=== PATIENT | female | born 1930 | race Caucasian/White ===

== ENCOUNTER → 2017-01-05 | Outpatient (CLI) | payer OTHER | LOC: CIMAGING 14:16 | DX: Z12.31 Encounter for screening mammogram for malignant neoplasm of breast (principal); Z85.3 Personal history of malignant neoplasm of breast; Z90.11 Acquired absence of right breast and nipple; Z80.3 Family history of malignant neoplasm of breast | CPT/HCPCS: G0202-52 ==

== ENCOUNTER → 2017-02-22 | Outpatient (CLI) | payer OTHER | LOC: CIMAGING 13:28 | PROVIDERS: ATTEND Internal Medicine | DX: R91.1 Solitary pulmonary nodule (principal); R06.02 Shortness of breath; Z85.3 Personal history of malignant neoplasm of breast; Z90.12 Acquired absence of left breast and nipple | CPT/HCPCS: 71250-PO ==

== ENCOUNTER 2017-03-14 08:03 | Emergency (ER) | payer OTHER ==
[2017-03-14 08:15] VITALS: RESP 18; TEMP 98
--- NOTE | 2017-03-14 08:20 | EDPHY ---
HPI/HX/ROS/PE/MDM Narrative: CHIEF COMPLAINT: Cough HPI: The patient is an 86-year-old female with no history of cardiac or pulmonary disease that she knows of. She reports developing a sore throat approximately 2 weeks ago. She was seen at a [facility]'s outpatient clinic and apparently had a negative throat culture. This turned into a cough approximately 1 week later. She was seen at her primary care physician's office , apparently had some ear wax removed and was started on a cough suppressant but no antibiotics. The patient states that since that time, her cough has gotten significantly worse. She feels short of breath and experiences a tightness in her chest. She does not describe this as pain, mainly congestion. She denies pain with inspiration. She denies hemoptysis. Her cough is dry and she is unable to produce sputum. She denies fever. She denies leg swelling. REVIEW OF SYSTEMS: Aside from elements discussed in the HPI, a comprehensive 10-point review of systems was reviewed and is negative. PMH: No known cardiac or pulmonary history. SOCIAL HISTORY: Retired. Primary physician is Dr. Lozano. Denies alcohol or drug abuse. PHYSICAL EXAM: General:Patient is alert, in no acute distress. ENT:Eyes are normal to inspection. ENT inspection normal. Neck: Normal inspection. Full range of motion. Respiratory:No respiratory distress. Scattered rhonchi. No wheeze. No rales. Cardiovascular: Regular rate and rhythm. Strong peripheral pulses. Normal cap refill. Abdomen:The abdomen is nontender to palpation. There are no peritoneal signs. There are normal bowel sounds. Back: Normal to inspection. No tenderness to palpation. Skin: Normal color. No rash. Warm and dry. Extremities: Normal appearance. Full range of motion. No pedal edema. No calf tenderness. Neuro: Oriented x3. Normal motor function. Normal sensory function. ED Course: EKG was ordered and interpreted by myself. Please see Veracode system for official reading. Chest x-ray was read and interpreted by myself as negative for pneumonia or acute process. Patient ambulated around the emergency department with mild desaturation to the mid 80s which then completely corrected back to 91% on room air. The patient is in no distress. MDM: This patient presents with worsening cough and chest tightness. We performed an extensive evaluation including EKG, chest x-ray and blood work. I see no evidence of acute coronary syndrome, CHF, pneumonia, pneumothorax or PE. Patient has a wicked-sounding cough certainly, but she is not hypoxic and she is not febrile or toxic. I am hesitant to place the patient on steroids given her age. There is no wheezing to suggest benefit from bronchodilators. Will prescribe her azithromycin as a precaution given progression of symptoms and duration. I strongly encouraged her to follow up with her primary physician and referred her to a insulation inspector. - Data Points Imaging Results: Imaging Impressions Chest X-Ray 03/14/17 08:14 Impression: Clear lungs. No pneumonia or acute process. Laboratory Results: Laboratory Results 03/14/17 09:02 03/14/17 09:02 03/14/17 03/14/17 09:02 09:02 WBC 5.65 10^3/uL 10^3/uL (3.80-9.50) RBC 5.57 10^6/uL H 10^6/uL (4.18-5.33) Hgb 16.3 g/dL g/dL (12.6-16.3) Hct 47.7 % H % (38.0-47.0) MCV 85.6 fL fL (81.5-99.8) MCH 29.3 pg pg (27.9-34.1) MCHC 34.2 g/dL g/dL (32.4-36.7) RDW 13.9 % % (11.5-15.2) Plt Count 252 10^3/uL 10^3/uL (150-400) MPV 10.1 fL fL (8.7-11.7) Neut % (Auto) 71.8 % % (39.3-74.2) Lymph % (Auto) 21.6 % % (15.0-45.0) Burke % (Auto) 5.0 % % (4.5-13.0) Eos % (Auto) 0.9 % % (0.6-7.6) Baso % (Auto) 0.5 % % (0.3-1.7) Nucleat RBC Rel Count 0.0 % % (0.0-0.2) Absolute Neuts (auto) 4.06 10^3/uL 10^3/uL (1.70-6.50) Absolute Lymphs (auto) 1.22 10^3/uL 10^3/uL (1.00-3.00) Absolute Monos (auto) 0.28 10^3/uL L 10^3/uL (0.30-0.80) Absolute Eos (auto) 0.05 10^3/uL 10^3/uL (0.03-0.40) Absolute Basos (auto) 0.03 10^3/uL 10^3/uL (0.02-0.10) Absolute Nucleated RBC 0.00 10^3/uL 10^3/uL (0-0.01) Immature Gran % 0.2 % % (0.0-1.1) Immature Gran # 0.01 10^3/uL 10^3/uL (0.00-0.10) Sodium 142 mEq/L mEq/L (134-144) Potassium 4.1 mEq/L mEq/L (3.5-5.2) Chloride 101 mEq/L mEq/L (97-110) Carbon Dioxide 27 mEq/l mEq/l (22-31) Anion Gap 14 mEq/L mEq/L (8-16) BUN 11 mg/dL mg/dL (7-23) Creatinine 0.8 mg/dL mg/dL (0.6-1.0) Estimated GFR > 60 Glucose 99 mg/dL mg/dL (70-100) Calcium 9.9 mg/dL mg/dL (8.5-10.4) Troponin I < 0.012 ng/mL ng/mL (0-0.034) NT-Pro-B Natriuret Pep 366 pg/mL pg/mL (0-450) General Time Seen by Provider: 03/14/17 08:07 Initial Vital Signs: Initial Vital Signs Temperature (C) 36.6 C 03/14/17 08:14 Heart Rate 88 03/14/17 08:14 Respiratory Rate 18 03/14/17 08:14 Blood Pressure 161/96 H 03/14/17 08:14 O2 Sat (%) 90 L 03/14/17 08:14 O2 Delivery Mode Room Air Allergies/Adverse Reactions: propoxyphene HCl [From Darvon] Allergy (Severe, Verified 06/15/15 17:34) NAUSEA / VOMITING narcotics Allergy (Uncoded 06/15/15 17:34) Home Medications: Medication Instructions Recorded Atorvastatin Calcium [Lipitor 20 20 mg PO DAILY 09/09/12 mg (RX)] Levothyroxine [Synthroid 50 mcg 50 mcg PO DAILY06 09/09/12 (RX)] Viactiv 09/09/12 Multivitamin (OTC) 06/15/15 AZITHROMYCIN [Z-PACK] 250 mg PO DAILY 5 Days 03/14/17 Departure - Departure Disposition: Home, Routine, Self-Care Clinical Impression: Acute bronchitis Condition: Good Instructions: Acute Bronchitis (ED) Additional Instructions: Call and make appointment with your primary care physician within 72 hours. Please tell him your in the ER for your symptoms. Follow up with a insulation inspector/lung specialist within 1-2 weeks. Return to the emergency department for fever, worsening shortness of breath, chest pain or other concerns. Referrals: Marah Sanders MD [Primary Care Provider] - As per Instructions Chago Alba MD [Medical Doctor] - As per Instructions Prescriptions: AZITHROMYCIN [Z-PACK] 250 mg PO DAILY 5 Days
--- NOTE | 2017-03-14 08:58 | CPEKG ---
Heart Rate: 87 RR Interval: 690 P-R Interval: 144 QRSD Interval: 102 QT Interval: 388 QTC Interval: 467 P [place]: 74 QRS [place]: -44 T Wave [place]: 4 EKG Severity - ABNORMAL ECG - EKG Impression: SINUS RHYTHM EKG Impression: LEFT ANTERIOR FASCICULAR BLOCK EKG Impression: ANTEROLATERAL INFARCT, OLD Electronically Signed By: Semaj Rogers 14-Mar-2017 15:47:20
[2017-03-14 09:10] LABS: % IMMATURE GRANULYOCYTES 0.2 % (0.0-1.1); ABSOLUTE IMMATURE GRANULOCYTES 0.01 10^3/uL (0.00-0.10); ADD DIFF? NO; ADD MORPH? NO; ADD SCAN? NO; ATYPICAL LYMPHOCYTE FLAG 10 (0-99); FRAGMENT RBC FLAG 0 (0-99); HEMATOCRIT 47.7 % (38.0-47.0); HEMOGLOBIN 16.3 g/dL (12.6-16.3); LEFT SHIFT FLG 0 (0-99); LIPEMIA HEMOLYSIS FLAG 90 (0-99); MEAN CELL HEMOGLOBIN 29.3 pg (27.9-34.1); MEAN CELL HEMOGLOBIN CONCENTR. 34.2 g/dL (32.4-36.7); MEAN CELL VOLUME 85.6 fL (81.5-99.8); MEAN PLATELET VOLUME 10.1 fL (8.7-11.7); PLATELET CLUMPS FLAG 10 (0-99); PLATELET COUNT 252 10^3/uL (150-400); RED BLOOD CELL COUNT 5.57 10^6/uL (4.18-5.33); RED CELL DISTRIBUTION WIDTH 13.9 % (11.5-15.2)
[2017-03-14 09:21] LABS: ANION GAP 14 mEq/L (8-16); CALCIUM 9.9 mg/dL (8.5-10.4); CARBON DIOXIDE 27 mEq/l (22-31); CHLORIDE 101 mEq/L (97-110); CREATININE 0.8 mg/dL (0.6-1.0); GLOMERULAR FILTRATION RATE > 60; GLUCOSE 99 mg/dL (70-100); POTASSIUM 4.1 mEq/L (3.5-5.2); SODIUM 142 mEq/L (134-144)
[2017-03-14 09:33] LABS: TROPONIN I < 0.012 ng/mL (0-0.034)
[2017-03-14 10:08] VITALS: O2SAT 88
[2017-03-14 10:27] VITALS: BP 128/62; PULSE 92
== END 2017-03-14 10:25 | disposition home or self-care (01) ==
LOC: CED 08:03
DX: J20.9 Acute bronchitis, unspecified (principal)
CPT/HCPCS: 71020-PO; 80048-PO; 83880-PO; 84484-PO; 85025-PO

== ENCOUNTER 2017-04-03 09:51 | Observation (INO) | payer OTHER ==
[2017-04-03] MEDS ORDERED: NS 1,000 ML IV ONE ×2 (09:56→11:20)
[2017-04-03] MEDS ORDERED: ASPIRIN 81 MG CHEWABLE TAB PO ONE (09:56)
--- NOTE | 2017-04-03 09:59 | CPEKG ---
Heart Rate: 153 RR Interval: 392 QRSD Interval: 108 QT Interval: 288 QTC Interval: 460 P [place]: 0 QRS [place]: -18 T Wave [place]: 41 EKG Severity - ABNORMAL ECG - EKG Impression: SUPRAVENTRICULAR TACHYCARDIA EKG Impression: LAD, CONSIDER LEFT ANTERIOR FASCICULAR BLOCK Electronically Signed By: Tanner Birmingham 04-Apr-2017 15:17:39
[2017-04-03] MEDS ORDERED: ADENOSINE 6 MG/2 ML VIAL ONE (10:04)
[2017-04-03] MEDS ORDERED: ADENOSINE 6 MG/2 ML VIAL IVP ONE ×2 (10:06→11:13)
[2017-04-03 10:14] LABS: % IMMATURE GRANULYOCYTES 0.3 % (0.0-1.1); ABSOLUTE IMMATURE GRANULOCYTES 0.02 10^3/uL (0.00-0.10); ADD DIFF? NO; ADD MORPH? NO; ADD SCAN? NO; ATYPICAL LYMPHOCYTE FLAG 10 (0-99); FRAGMENT RBC FLAG 0 (0-99); HEMATOCRIT 48.4 % (38.0-47.0); LEFT SHIFT FLG 0 (0-99); LIPEMIA HEMOLYSIS FLAG 80 (0-99); MEAN CELL HEMOGLOBIN 29.6 pg (27.9-34.1); MEAN CELL HEMOGLOBIN CONCENTR. 33.1 g/dL (32.4-36.7); MEAN CELL VOLUME 89.5 fL (81.5-99.8); MEAN PLATELET VOLUME 10.4 fL (8.7-11.7); PLATELET CLUMPS FLAG 0 (0-99); PLATELET COUNT 247 10^3/uL (150-400); RED BLOOD CELL COUNT 5.41 10^6/uL (4.18-5.33)
--- NOTE | 2017-04-03 10:14 | CPEKG ---
Heart Rate: 90 RR Interval: 667 P-R Interval: 148 QRSD Interval: 96 QT Interval: 380 QTC Interval: 465 P [place]: 71 QRS [place]: -47 T Wave [place]: 36 EKG Severity - ABNORMAL ECG - EKG Impression: SINUS RHYTHM EKG Impression: LEFT ANTERIOR FASCICULAR BLOCK Electronically Signed By: Tanner Birmingham 04-Apr-2017 15:17:12
[2017-04-03 10:30] LABS: CALCIUM 9.3 mg/dL (8.5-10.4); CREATININE 0.9 mg/dL (0.6-1.0); POTASSIUM 4.1 mEq/L (3.5-5.2)
--- NOTE | 2017-04-03 10:39 | EDPHY ---
H & P Stated Complaint: Intermittent rapid HR since 0400 today. Denies SOB, chest pain. Time Seen by Provider: 04/03/17 09:55 HPI/ROS: CHIEF COMPLAINT: Racing heart History by patient HISTORY OF PRESENT ILLNESS: A 86 old woman with a history of hypothyroidism presents complaining of heart racing and feeling lightheaded and dizzy like she does not want a walk along as well as feeling like she can't quite catch her breath. She denies any associated chest pain or leg swelling. The symptoms began around 3:00 a.m. this morning and have been persistent so that she family called her daughter to bring her in. Patient has had several episodes like this in the past over the past few years and recently wore a Holter monitor that did not provide the diagnosis, and was but scheduled for a loop monitor but has not yet worn this. This is the 1st time she sought medical attention while having the symptoms. Patient states that she had a episode of bronchitis about a month ago and had chest x-rays and CT scans and that the heart racing as seems to gotten worse since the onset of the bronchitis. Her cough however is now resolved but she continues to get short of breath with exertion from time to time. Patient has never been a smoker. She has no history of hyper tension or diabetes. REVIEW OF SYSTEMS: As in HPI, and limited by the critical nature of the patient's presentation Source: Patient - Personal History Current Tetanus Diphtheria and Acellular Pertussis (TDAP): Yes Tetanus Vaccine Date: 2007 - Medical/Surgical History Hx Asthma: No Hx Chronic Respiratory Disease: No Hx Diabetes: No Hx Cardiac Disease: No Hx Renal Disease: No Hx Cirrhosis: No Hx Alcoholism: No Hx HIV/AIDS: No Hx Splenectomy or Spleen Trauma: No Other PMH: tonsillectomy, mitral valve prolapse, hysterectomy, total r knee replacement, hernia repair, arthritis, elevated cholesterol, pulm. HTN, L breast masectomy- breast cancer, hernia, hypothyroidism - Social History Smoking Status: Never smoked Constitutional: Initial Vital Signs Temperature (C) 36.6 C 04/03/17 09:52 Heart Rate 151 H 04/03/17 09:52 Respiratory Rate 16 04/03/17 09:52 Blood Pressure 97/74 L 04/03/17 09:52 O2 Sat (%) 97 04/03/17 09:52 O2 Delivery Mode Nasal Cannula O2 (L/minute) 2 Allergies/Adverse Reactions: propoxyphene HCl [From Darvon] Allergy (Severe, Verified 04/03/17 10:01) NAUSEA / VOMITING narcotics Allergy (Intermediate, Uncoded 04/03/17 10:01) "feels weird" Home Medications: Medication Instructions Recorded Atorvastatin Calcium [Lipitor 20 20 mg PO HS 09/09/12 mg (RX)] Levothyroxine [Synthroid 50 mcg 50 mcg PO Q2D 09/09/12 (RX)] Multivitamins [Multivitamin (*)] 1 each PO DAILY 06/15/15 Cholecalciferol Vit D3 [Vitamin D3 2,000 units PO DAILY 04/03/17 2000 units tab (OTC)] Herbals/Supplements -Info Only 1 ea PO DAILY 04/03/17 Levothyroxine [Synthroid 25 mcg 25 mcg PO Q2D 04/03/17 (*)] Loperamide HCl [Imodium 2 mg (*)] 4 mg PO ONCE PRN 04/03/17 celeCOXIB [Celebrex (*)] 200 mg PO DAILY PRN 04/03/17 Medical Decision Making - Diagnostics Imaging Results: Imaging Impressions Chest X-Ray 04/03/17 09:56 Impression: Stable chest. Cardiomegaly. ED Course/Re-evaluation: 86-year-old woman presents with dizziness and racing heartbeat. ECG shows supraventricular tachycardia at a rate of 150. Because the patient was in supraventricular tachycardia with hypotension she was converted with adenosine.. Patient was placed on a radiographer cardiac catheterization and IV access was obtained. She was given 6 mg of IV adenosine and converted from supraventricular tachycardia to normal sinus rhythm. Her repeat blood pressure was within normal limits. Chest x-ray showed nothing acute. Labs are unremarkable including a 1st negative troponin. While awaiting workup the patient had a 2nd episode of SVT 1st noticed on the radiographer cardiac catheterization at a rate in the 140-1 50s and again her blood pressure dropped into the 80s.. This was confirmed with an ECG showing supraventricular tachycardia at a rate of 150s. She was given a 2nd dose of IV adenosine 6 mg and again converted to normal sinus rhythm. After she converted her blood pressure improved again. I discussed the case with Dr. Paz, on-call for the patient's tape recorder repairer Dr. Westfall who recommended starting the patient on a small dose of diltiazem, 5 mg and then beginning oral diltiazem and they would follow up with her as an outpatient. Patient was given IV diltiazem after which her heart rate slowed down into the 40s and with this she was feeling unwell although she could not characterize exactly what was wrong. Her blood pressure dropped slightly with this but then stabilized. Because of the patient's dramatic response to the IV diltiazem with bradycardia I felt it would be prudent to observe her in the hospital until she was stabilized on the oral medication. I discussed this with Dr. Davenport, hospitalist electrophysiology nurse practitioner, who agrees and the patient was transferred to [facility] for further evaluation. Total critical care time was 90 minutes exclusive of procedures and included response, evaluation and re-evaluation for supraventricular tachycardia with hypotension. - Data Points Laboratory Results: Laboratory Results 04/03/17 10:05 04/03/17 10:05 04/03/17 04/03/17 04/03/17 13:07 10:05 10:05 WBC 6.55 10^3/uL 10^3/uL (3.80-9.50) RBC 5.41 10^6/uL H 10^6/uL (4.18-5.33) Hgb 16.0 g/dL g/dL (12.6-16.3) Hct 48.4 % H % (38.0-47.0) MCV 89.5 fL fL (81.5-99.8) MCH 29.6 pg pg (27.9-34.1) MCHC 33.1 g/dL g/dL (32.4-36.7) RDW 14.0 % % (11.5-15.2) Plt Count 247 10^3/uL 10^3/uL (150-400) MPV 10.4 fL fL (8.7-11.7) Neut % (Auto) 64.9 % % (39.3-74.2) Lymph % (Auto) 27.6 % % (15.0-45.0) [place] % (Auto) 4.9 % % (4.5-13.0) Eos % (Auto) 1.5 % % (0.6-7.6) Baso % (Auto) 0.8 % % (0.3-1.7) Nucleat RBC Rel Count 0.0 % % (0.0-0.2) Absolute Neuts (auto) 4.25 10^3/uL 10^3/uL (1.70-6.50) Absolute Lymphs (auto) 1.81 10^3/uL 10^3/uL (1.00-3.00) Absolute Monos (auto) 0.32 10^3/uL 10^3/uL (0.30-0.80) Absolute Eos (auto) 0.10 10^3/uL 10^3/uL (0.03-0.40) Absolute Basos (auto) 0.05 10^3/uL 10^3/uL (0.02-0.10) Absolute Nucleated RBC 0.00 10^3/uL 10^3/uL (0-0.01) Immature Gran % 0.3 % % (0.0-1.1) Immature Gran # 0.02 10^3/uL 10^3/uL (0.00-0.10) Sodium 137 mEq/L mEq/L (134-144) Potassium 4.1 mEq/L mEq/L (3.5-5.2) Chloride 99 mEq/L mEq/L (97-110) Carbon Dioxide 24 mEq/l mEq/l (22-31) Anion Gap 14 mEq/L mEq/L (8-16) BUN 13 mg/dL mg/dL (7-23) Creatinine 0.9 mg/dL mg/dL (0.6-1.0) Estimated GFR 60 Glucose 156 mg/dL H mg/dL (70-100) Calcium 9.3 mg/dL mg/dL (8.5-10.4) Troponin I 0.023 ng/mL ng/mL 0.020 ng/mL ng/mL (0-0.034) (0-0.034) Medications Given: Discontinued Medications Adenosine (Adenosine) 6 mg IVP EDNOW ONE Stop: 04/03/17 10:07 Last Admin: 04/03/17 10:07 Dose: 6 mg Adenosine (Adenosine) 6 mg IVP EDNOW ONE Stop: 04/03/17 11:14 Last Admin: 04/03/17 11:13 Dose: 6 mg Aspirin (Aspirin) 324 mg PO EDNOW ONE Stop: 04/03/17 09:57 Last Admin: 04/03/17 10:05 Dose: 324 mg Diltiazem HCl (Cardizem 25 Mg/5 Ml Vial) 5 mg IVP EDNOW ONE Stop: 04/03/17 11:33 Last Admin: 04/03/17 11:39 Dose: 5 mg Sodium Chloride (Ns) 1,000 mls @ 0 mls/hr IV ONCE ONE PRN Reason: Wide Open Stop: 04/03/17 09:57 Last Admin: 04/03/17 09:56 Dose: 1,000 mls Sodium Chloride (Ns) 1,000 mls @ 0 mls/hr IV ONCE ONE PRN Reason: Wide Open Stop: 04/03/17 11:21 Last Admin: 04/03/17 11:20 Dose: 1,000 mls Departure - Departure Disposition: [facility] Inpatient Acute Clinical Impression: Supraventricular tachycardia, Bradycardia by electrocardiogram Hypotension Qualifiers: Hypotension type: unspecified hypotension type Qualified Code(s): I95.9 - Hypotension, unspecified Condition: Fair
[2017-04-03 10:43] LABS: TROPONIN I 0.02 ng/mL (0-0.034)
--- NOTE | 2017-04-03 11:25 | CPEKG ---
Heart Rate: 144 RR Interval: 417 QRSD Interval: 110 QT Interval: 312 QTC Interval: 483 QRS [place]: -3 T Wave [place]: 20 EKG Severity - ABNORMAL ECG - EKG Impression: JUNCTIONAL TACHYCARDIA EKG Impression: INCOMPLETE RBBB AND LAFB Electronically Signed By: Tanner Birmingham 04-Apr-2017 15:16:48
--- NOTE | 2017-04-03 11:26 | CPEKG ---
Heart Rate: 93 RR Interval: 645 P-R Interval: 140 QRSD Interval: 96 QT Interval: 364 QTC Interval: 453 P [place]: 78 QRS [place]: -43 T Wave [place]: -9 EKG Severity - BORDERLINE ECG - EKG Impression: SINUS RHYTHM EKG Impression: LEFT AXIS DEVIATION EKG Impression: CONSIDER ANTERIOR INFARCT EKG Impression: BORDERLINE T ABNORMALITIES, DIFFUSE LEADS Electronically Signed By: Tanner Birmingham 04-Apr-2017 15:16:20
[2017-04-03] MEDS ORDERED: DILTIAZEM 25 MG/5 ML VIAL IVP ONE (11:32)
--- NOTE | 2017-04-03 12:38 | CPEKG ---
Heart Rate: 69 RR Interval: 870 P-R Interval: 160 QRSD Interval: 98 QT Interval: 440 QTC Interval: 472 P [place]: 65 QRS [place]: -31 T Wave [place]: 11 EKG Severity - BORDERLINE ECG - EKG Impression: SINUS RHYTHM EKG Impression: LEFT AXIS DEVIATION EKG Impression: CONSIDER ANTERIOR INFARCT Electronically Signed By: Tanner Birmingham 04-Apr-2017 15:14:20
[2017-04-03] MEDS ORDERED: ONDANSETRON 4 MG/2 ML VIAL IVP PRN (14:56)
[2017-04-03] MEDS ORDERED: ACETAMINOPHEN 325 MG TAB PO PRN (14:56)
[2017-04-03] MEDS ORDERED: ONDANSETRON DISINTEGRATING 4 MG TAB PO PRN (14:56)
--- NOTE | 2017-04-03 16:18 | GHP ---
[f rep st] HISTORY AND PHYSICAL DATE OF ADMISSION: 04/03/2017 CHIEF COMPLAINT: SVT, palpitations. HISTORY OF PRESENT ILLNESS: Patient is a pleasant 86-year-old female with history of hypothyroidism , hyperlipidemia, presented to [facility] with palpitations and dizziness. She feels unsteady on her feet with these symptoms. She does feel some sob with these episodes. No chest pain. This today began at 3 a.m. and has been persistent thus went to clinic. She saw her PCP on 03/28/2017 with similar s ymptoms, and at that time plan was to get a Holter monitor. Patient has had several episodes over the last few years with a negative Holter monitor in 2014; how ever, over the last month episodes have occurred more frequently and are lasting longer. Denies any PND, orthopnea, or lower extremity edema. No headaches. No nausea or vomiting. Has intermittent diarrhea with her IBS, nothing out of the norm currently. At [facility], EKG demonstrated SVT with heart rate 150s, received adenosine 6 mg x2 and then diltiazem IV 5 mg once. REVIEW OF SYSTEMS: I completed a 10-point review of systems, negative except as noted in HPI. PAST MEDICAL HISTORY: 1. Hypothyroidism. 2. IBS. 3. Hyperlipidemia. 4. Clostridium difficile in 1992. 5. Mitral valve prolapse. 6. Pulmonary nodules. 7. History of breast cancer, status post left mastectomy and tamoxifen. 8. Pulmonary nodules demonstrated on CT February 2017, unchanged from prior. 9. Pulmonary hypertension, echo 2014 with RVSP of 46 mmHg. PAST SURGICAL HISTORY: 1. Right TKA 07/30/2010. 2. Hysterectomy. SOCIAL HISTORY: She is a . Lives alone in [place] but has a daughter there as well as [place]. Occasional alcohol. No illicits or tobacco. FAMILY HISTORY: Mother of an [place] at age 76. ALLERGIES: Darvon, narcotics. HOME MEDICATIONS: Lipitor 20 mg, Celebrex, levothyroxine 50 mcg, multivitamin, Viactiv Soft Chew. PHYSICAL EXAMINATION: VITAL SIGNS: Temperature 36.6, blood pressure 136/75, now 115/78, heart rate in 65 to 77, respirations 16, 98% on 2 liters. GENERAL: Well-appearing female, sitting up in bed, smiling no acute distress. HEENT: PERRLA. EOMI. Oropharynx clear. CV: Regular. No murmurs, g allops, or rubs. No lower extremity edema. LUNGS: Clear to auscultation. No crackles. ABDOMEN: Soft, nontender, nondistended. Positive bowel sounds. : No suprapubic tenderness. MUSCULOSKEL ETAL: 5/5 upper and lower extremity strength. NEUROLOGICAL: 2 through 12 intact. PSYCH: Alert a nd oriented x3. LABS: WBC 6, hemoglobin 16, hematocrit 48, platelets 247. Sodium 137, potassium 4.1, chloride 99, carbon dioxide 24, BUN 13, creatinine 0.9, glucose 156, calcium 9.3. Troponin 0.02, on repeat 0.023 . Magnesium 1.9. TSH 0.846, a week ago it was 0.4. EKG first at 9:57 showed SVT with heart rate 153. Repeat at 10:05 normal sinus rhythm, left anterio r fascicular block, some ST flattening 3 and AVF. This was similar to prior EKGs in the past. Chest x-ray personally reviewed by me: Mild cardiac enlargement. No pulmonary effusion or opacity. ASSESSMENT AND PLAN: 1. Supraventricular tachycardia. Differential includes acute coronary syndrome versus medication v ersus infection. She converted with adenosine and diltiazem at [facility]. She will be monitored in the [facility] on telemetry. I will start a low-dose diltiazem orally tonight. Query if related to her hypothy roidism as her TSH is on the very low of normal. I will dose reduce her levothyroxine. Check an ec hocardiogram. Will have Cardiology evaluate patient in the morning. 2. Does have history of malignancy status post mastectomy with pulmonary nodules that have been sta ble. We will check a D-dimer to ensure no clots. 3. Hyperlipidemia. Continue statin. 4. Hyperthyroidism. Again will reduce levothyroxine. 5. Diet regular. 6. Deep venous thrombosis prophylaxis, Lovenox. DISPOSITION: Patient warrants observation admission given acute SVT requiring telemetry and diltiaz em and echocardiogram. /[id number]/MODL
[2017-04-03 17:39] LABS: COLOR PALE YELLOW; LEUKOCYTE ESTERASE,URINE NEGATIVE (NEGATIVE); NITRITE,URINE NEGATIVE (NEGATIVE)
[2017-04-03] MEDS: DILTIAZEM 30 MG TAB PO SCH (22:19)
[2017-04-04] MEDS ORDERED: LEVOTHYROXINE 25 MCG TAB PO SCH ×2 (06:00→11:15)
[2017-04-04 07:26] VITALS: RESP 16
[2017-04-04] MEDS ORDERED: ENOXAPARIN 40 MG/0.4 ML SYR SC SCH (09:00)
[2017-04-04] MEDS: DILTIAZEM 30 MG TAB PO SCH (09:49)
[2017-04-04] MEDS ORDERED: LOPERAMIDE HCL 2 MG CAP PO PRN ×2 (11:08→11:20)
[2017-04-04 11:16] VITALS: TEMP 97.8
[2017-04-04] MEDS ORDERED: DILTIAZEM 30 MG TAB PO SCH (14:00)
[2017-04-04 15:49] VITALS: BP 133/82; PULSE 75; O2SAT 90
--- NOTE | 2017-04-04 16:12 | GDS ---
[f rep st] DISCHARGE SUMMARY ALL DIAGNOSES: 1. 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 2. Hyperlipidemia. 3. Hypothyroid. HOSPITAL COURSE: An 86-year-old female, admitted with palpitations. Found to be in SVT. She conve rted after receiving adenosine x2 in the emergency department. She was seen by Cardiology, who jameel mmended starting her on diltiazem. Her dose will be 30 mg p.o. t.i.d. She will get a Holter monito r, hopefully today, but may not be able to get one until Sunday for ongoing monitoring. She has a f best appointment with Dr. Westfall, 5 days after discharge. She has not had any episodes of sync ope or chest pain with this. I think that she is safe to be discharged. She was given strict retur n precautions. Since starting diltiazem, she has had 1 short asymptomatic run of SVT. This may hav e been before she actually was able to absorb the oral dose that she had gotten. /[id number]/MODL
--- NOTE | 2017-04-04 17:42 | GCON ---
[f rep st] CONSULTATION CARDIOLOGY CONSULTATION INDICATION FOR CARDIOLOGY CONSULTATION: Supraventricular tachycardia. HISTORY OF PRESENT ILLNESS: The patient is an 86-year-old female, she has been seen in our practice by Dr. Westfall in the past multiple years ago. She reports significant past history of hyperlipidemia, hypothyroidism, previously diagnosed mitral valve prolapse in 1989, pulmonary hypertension, and history of breast cancer. Patient reports over the last 6 months of having episodes of irregular heartbeats, feeling as if her heart was beating fast with associated symptoms of shortness of breath. She reports no lightheadedness, near-syncope, or syncopal events. She feels this has worsened in the last 2 weeks, and yesterday morning, woke up around 3 a.m. with a pounding heartbeat. She denies any chest pressure or pain, just shortness of breath. This did not subside quickly within a few hours, and decided to be further evaluated. Went to the [facility], and there she underwent a 12-lead electrocardiogram showing supraventricular tachycardia with a ventricular rate at 153 beats per minute, left anterior fascicular block. She was initially treated with IV adenosine, in which she converted back to the sinus rhythm. Her initial troponin was negative, but as she was waiting for her second troponin level to be drawn, she went into SVT again, requiring a second dose of adenosine, and converting back into sinus rhythm. At that point, she had been given a low dose of IV diltiazem and with recommendation of being started on oral diltiazem. After receiving the dosage, she did get some mild bradycardia, but no significant pauses that I could find in the chart and became highly hypotensive. Due to this and her age, it was felt that she should be evaluated overnight for further evaluation. She was transferred to the PCU telemetry unit at [facility] via ambulance services. Since her hospital admission , she has been in sinus rhythm, sinus bradycardia, the lowest heart rate I could find is the mid 50s. There was some concern by the discharge specialist nurse last evening about her heart rate being too low for oral diltiazem, and it was not given last evening, 30 mg slow release. I reviewed her continuous telemetry personally, and I have found that she has been sinus bradycardic with rates into the high 50s, but no other significant malignant arrhythmias; pauses have been noted. She reports to me today that she has no history of chest pain or pressure, and reports no further episodes of palpitations since admission to the hospital. She does admit that she has had a recent upper respiratory infection last month, in which she did see her PCP, Dr. Lozano, when she was started on antibiotic therapy, reporting improvement after therapy. She reports no other recent fevers, chills, night sweats, colds or cough. She denies any bleeding issues. Reporting no orthopnea, PND, edema, lightheadedness, near- syncope or syncopal events. Denies any symptoms suggestive of TIA or CVA. PAST MEDICAL HISTORY: Includes: 1. Hypothyroidism. 2. Irritable bowel syndrome. 3. Hyperlipidemia. 4. C diff in 1992. 5. Mitral valve prolapse first diagnosed in 1989. 6. Pulmonary hypertension. 7. History of breast cancer. PAST SURGICAL HISTORY: Includes: 1. Left mastectomy due to breast cancer. 2. Right total knee. 3. Hysterectomy. SOCIAL HISTORY: She is retired, she lives alone in [place], but she has 3 adult children who live close. She denies of any significant history of smoking. Denies of any illicit drug use. Does report occasional alcohol intake. FAMILY HISTORY: Patient reports mother dying of heart disease at age 76. ALLERGIES: Patient reports allergies to Darvon and narcotics. HOME MEDICATIONS: Include: 1. Lomotil 4 mg p.o. once daily p.r.n. 2. Vitamin D 2000 units p.o. daily. 3. Atorvastatin 20 mg p.o. at h.s. 4. Celebrex 200 mg p.o. daily p.r.n. 5. Multivitamin 1 tablet p.o. daily. 6. Synthroid 50 mcg p.o. q. every other day. 7. Synthroid 25 mcg p.o. daily every other day. 8. Herbs and supplements. REVIEW OF SYSTEMS: A 10-point review of systems done on patient, all negative except as mentioned above. PHYSICAL EXAMINATION: GENERAL: Thin, well-groomed, female. She is alert and oriented to person, place, time, and situation. She appears to be under no acute distress at this time. CURRENT VITAL SIGNS: Blood pressure of 143 /88, heart rate is 67, in sinus rhythm on the monitor, respirations 16 saturating 92% to 93% on room air, temperature of 36.4 degrees Celsius. HEENT: Head is normocephalic. Lips and tongue are pink and moist with no signs of cyanosis. Conjunctivae pink. NECK: Trachea is midline, +2 carotid pulses bilateral, no auscultated bruits, no jugular vein distention. RESPIRATORY: Lungs clear to auscultation, no rhonchi, rales or wheezes. No accessory muscle use. No intercostal muscle retraction noted. CARDIAC: Regular rate, regular rhythm, S1 and S2. No S3, S4, gallops rubs or murmurs noted. ABDOMEN: Soft, nontender, bowel sounds x4 quadrants. No organomegaly. No palpable masses. SKIN : [place], warm, dry, no cyanosis, no clubbing, no peripheral edema. VASCULAR: +2 carotids bilateral, +2 radials bilateral, +1 dorsal pedal and posterior tibial pulses bilateral. LABORATORY STUDIES: Laboratory studies drawn during hospital admission yesterday showed WBC 6.55, hemoglobin of 16.0, hematocrit 48.4, platelet count of 247. Sodium 137, potassium 4.1, chloride 99, CO2 of 24, BUN 13, creatinine 0.9, glucose 156, calcium 9.3, magnesium was 1.9. The patient has had 2 troponin levels, initial 0.020 and 0.023. TSH was 0.846. UAs done were all negative. STUDIES: Initial electrocardiogram as mentioned above. Repeated electrocardiogram done yesterday afternoon at 12:33 showing sinus rhythm, leftward axis deviation, left posterior fascicular block. Chest x-ray showed no acute cardiopulmonary process. Echocardiogram done this morning showing LV systolic function normal with EF of 60% to 65%. LA was mildly dilated. RA was moderately dilated. Mild AI, mild MR, moderate TR. RVSP was noted at 53 mmHg. ASSESSMENT AND PLAN: 1. Paroxysmal supraventricular tachycardia: Patient reporting ongoing episodes of palpitations over the last 6 months, worsening the last 2 week, with worse episode yesterday. Admission electrocardiogram shows supraventricular tachycardia with rates up to 150 beats per minute while upon emergency department arrival, converted back to a sinus rhythm with adenosine, with repeated episode soon afterwards, and requiring another adenosine. The patient has been given Cardizem. Initial IV Cardizem did cause hypotension and bradycardia, which caused her to be hospitalized, has had no further episodes of supraventricular tachycardia runs since emergency department admission. Do think that she should stay on 30 mg of immediate release diltiazem b.i.d. for the current time. Hospitalist services noted that her TSH has been running at the lower limits of normal, and they have decreased her Synthroid, which potentially may be the reason for increased supraventricular tachycardia. Echocardiogram showing normal LV systolic function with no wall motion abnormalities, EF of 60%, LA was mildly dilated. At this time, I would like her to get up and walk around the unit. If she has no further problems or no arrhythmias noted, then consideration for discharge home. I would like her to have a repeat of a 48-hour Holter monitor to be done, which I have scheduled to be done Sunday of this week. Will also have her follow up with Dr. Westfall as an outpatient. If patient has a persistent continuation of supraventricular tachycardia, we can consider having her see Electrophysiology Services for ablation, but per the patient and family, she would like to attempt medication therapy before proceeding down that road. 2. History of hyperlipidemia: Patient has been resumed on statin therapy. We will continue to monitor her. 3. Pulmonary hypertension: The patient has been noted to have pulmonary hypertension. Past echocardiogram showing PA pressures of 47. Today's echocardiogram showing 53, no significant worsening. Patient reports no significant shortness of breath. We will continue to monitor her as an outpatient. 4. Code status: Patient's family and patient report she is a DNR. FOLLOWUP: I have scheduled for the patient to be followed up in the office. She has an appointment to see Dr. Westfall, her primary ssn/ssbn assistant navigator, on April 13 at 2 p.m. Again, she is scheduled for a 48-hour Holter monitor to be done April 06 at 1 p.m. at our office. She and her family have been told that if they have any problems, concerns post discharge, they are to call our office or return to the hospital. Thank you for this consultation. /[id number]/MODL MTDD
[2017-04-04] MEDS ORDERED: ATORVASTATIN CALCIUM 20 MG TAB PO SCH (21:00)
[2017-04-05] MEDS ORDERED: LEVOTHYROXINE 50 MCG TAB PO SCH (06:00)
[2017-04-05] MEDS ORDERED: ENOXAPARIN 30 MG/0.3 ML SYR SC SCH (09:00)
== END 2017-04-04 16:26 | disposition home or self-care (01) ==
LOC: CED 09:51 → CEDHOLD 13:21 → F2W 14:40
PROVIDERS: ADMIT Internal Medicine; ATTEND Internal Medicine
DX: I47.1 Supraventricular tachycardia (principal); E78.5 Hyperlipidemia, unspecified; E03.9 Hypothyroidism, unspecified; I95.9 Hypotension, unspecified; K58.9 Irritable bowel syndrome, unspecified; I27.2 Other secondary pulmonary hypertension; Z85.3 Personal history of malignant neoplasm of breast
CPT/HCPCS: 71010; 93005; 96361; 96374; 96375; 96376; 99291; 99292; G0378; J0153; 80048-PO; 83735-PO; 84443-PO; 84484-PO; 85025-PO

== ENCOUNTER → 2017-04-06 | Outpatient (CLI) | payer OTHER | LOC: BHFA 13:00 | PROVIDERS: ATTEND Internal Medicine Cardiovascular Disease | DX: I47.1 Supraventricular tachycardia (principal) ==

== ENCOUNTER → 2018-01-02 | Outpatient (CLI) | payer OTHER | LOC: CIMAGING 13:11 | PROVIDERS: ATTEND Internal Medicine | DX: R91.1 Solitary pulmonary nodule (principal); I25.10 Atherosclerotic heart disease of native coronary artery without angina pectoris; Z85.3 Personal history of malignant neoplasm of breast | CPT/HCPCS: 71250-PO ==

== ENCOUNTER → 2018-01-23 | Outpatient (CLI) | payer OTHER | LOC: CIMAGING 13:58 | PROVIDERS: ATTEND Internal Medicine | DX: Z12.31 Encounter for screening mammogram for malignant neoplasm of breast (principal); Z90.12 Acquired absence of left breast and nipple; Z85.3 Personal history of malignant neoplasm of breast ==

== ENCOUNTER → 2018-02-22 | Outpatient (CLI) | payer OTHER | LOC: BHFA 13:15 | PROVIDERS: ATTEND Internal Medicine Cardiovascular Disease | DX: I27.20 Pulmonary hypertension, unspecified (principal); I49.9 Cardiac arrhythmia, unspecified; I47.1 Supraventricular tachycardia; R00.2 Palpitations ==

== ENCOUNTER → 2018-05-31 | Outpatient (CLI) | payer OTHER | LOC: BHCLAF 11:00 | PROVIDERS: ATTEND Internal Medicine Cardiovascular Disease | DX: I34.1 Nonrheumatic mitral (valve) prolapse (principal); I27.20 Pulmonary hypertension, unspecified; I49.9 Cardiac arrhythmia, unspecified | CPT/HCPCS: 93005-PO ==

== ENCOUNTER → 2018-06-28 | Outpatient (CLI) | payer OTHER | LOC: BHCLAF 13:15 | PROVIDERS: ATTEND Internal Medicine Cardiovascular Disease | DX: I27.21 Secondary pulmonary arterial hypertension (principal); I05.9 Rheumatic mitral valve disease, unspecified | CPT/HCPCS: 93306-PO ==

== ENCOUNTER → 2019-03-05 | Outpatient (CLI) | payer OTHER | LOC: CIMAGING 12:41 ==